=== PATIENT | female | born 1980 | race Two or more races ===

== ENCOUNTER 2021-12-11 12:37 | Emergency (ER) | payer MEDICAID ==
[2021-12-11] MEDS ORDERED: Ketorolac 60 MG/2 ML SDV IM ONE (15:07)
== END 2021-12-11 15:51 | disposition home or self-care (01) ==
LOC: MW.ED 12:37
DX: M19.071 Primary osteoarthritis, right ankle and foot (principal); E03.9 Hypothyroidism, unspecified; Z79.899 Other long term (current) drug therapy
CPT/HCPCS: 96372; 99283; J1885; 99282

== ENCOUNTER 2022-01-03 07:40 | Day surgery (SDC) | payer MEDICAID, OTHER ==
[2022-01-01 17:00] LABS: CARBON DIOXIDE,CO2 26.5 mmol/L (21.0-32.0); POTASSIUM,K 4.1 mmol/L (3.5-5.1)
[~2022-01-03 07:40] MED LIST: Sodium Chloride 0.9% 10 ML Syringe FLUSH PRN; Sodium Chloride 0.9% 2.5 ML Syringe FLUSH PRN; Sodium Chloride 0.9% 20 ML SDV IV PRN; ceFAZolin 2 GM in Premix Bag 1 BAG IV ONE
[2022-01-03] MEDS: Lactated Ringers 1,000 ML IV SCH ×2 (07:53→11:34)
[2022-01-03] MEDS ORDERED: Rocuronium Bromide 50 MG/5 ML Syringe ONE (08:12)
[2022-01-03] MEDS ORDERED: Ketamine 500 mg/10 ML MDV ONE (08:13)
[2022-01-03] MEDS ORDERED: Propofol 200 MG/20 ML SDV ONE (08:13)
[2022-01-03] MEDS ORDERED: fentaNYL 250 MCG/5 ML SDV ONE ×2 (08:13→10:35)
[2022-01-03] MEDS ORDERED: Fluorescein 5 ML Vial ONE (08:21)
[2022-01-03] MEDS ORDERED: Albuterol 0.083% 2.5 MG/3 ML Neb Soln NEB PRN (08:43)
[2022-01-03] MEDS ORDERED: Naloxone 0.4 MG/ML SDV IVPUSH PRN (08:43)
[2022-01-03] MEDS ORDERED: Ondansetron 4 MG/2 ML SDV IVPUSH PRN ×2 (08:43→10:13)
[2022-01-03] MEDS ORDERED: fentaNYL 50 MCG/ML SDV IVPUSH PRN (08:43)
[2022-01-03] MEDS ORDERED: HYDROmorphone 1 MG/ML Syringe IVPUSH PRN (08:43)
[2022-01-03] MEDS ORDERED: Metoclopramide 10 MG/2 ML SDV IVPUSH PRN (08:43)
[2022-01-03] MEDS ORDERED: Acetaminophen/oxyCODONE 325-5 MG Tab PO PRN (10:13)
[2022-01-03] MEDS ORDERED: Ketorolac 30 MG/ML SDV IVPUSH ONE (10:13)
[2022-01-03] MEDS ORDERED: Promethazine 25 MG/ML SDV IM PRN (10:13)
[2022-01-03] MEDS ORDERED: Morphine 4 MG/ML VIAL IVPUSH PRN (10:13)
[2022-01-03] MEDS ORDERED: fentaNYL 100 MCG/2 ML SDV ONE (10:35)
[2022-01-03] MEDS ORDERED: Dexamethasone 4 MG/ML 5 ML MDV ONE (10:35)
[2022-01-03] MEDS ORDERED: Ondansetron 4 MG/2 ML SDV ONE (10:35)
[2022-01-03] MEDS ORDERED: Sugammadex Sodium 200 MG/2 ML VIAL ONE (10:35)
[2022-01-03] MEDS ORDERED: Ketorolac 30 MG/ML SDV IVPUSH PRN (16:00)
[2022-01-04] MEDS: Acetaminophen/oxyCODONE 325-5 MG Tab PO PRN ×2 (04:16→08:41)
[2022-01-04 05:46] LABS: CARBON DIOXIDE,CO2 25.3 mmol/L (21.0-32.0); POTASSIUM,K 4.4 mmol/L (3.5-5.1)
== END 2022-01-04 09:15 | disposition home or self-care (01) ==
LOC: MW.SDS 07:40 → MW.OB 08:55 → MW.SDS 01-04 09:15
PROVIDERS: ATTEND Obstetrics & Gynecology
DX: N92.1 Excessive and frequent menstruation with irregular cycle (principal); N87.9 Dysplasia of cervix uteri, unspecified; N72 Inflammatory disease of cervix uteri; N80.0 Endometriosis of uterus; N83.11 Corpus luteum cyst of right ovary; F17.210 Nicotine dependence, cigarettes, uncomplicated; E03.9 Hypothyroidism, unspecified; E66.9 Obesity, unspecified; Z79.899 Other long term (current) drug therapy; Z79.890 Hormone replacement therapy
CPT/HCPCS: 36415; 58262; 80048; 84703; 85025; 85027; 86850; 86900; 86901; A9270; J1100; J1170; J1885; J2270; J2405; J2704; J3010; J3490; J7120; 00944; J7030

== ENCOUNTER 2022-10-28 22:51 | Emergency (ER) | payer MEDICAID, OTHER ==
[2022-10-28 23:27] LABS: APPEARANCE,URINE CLOUDY; BILIRUBIN,URINE NEGATIVE (NEGATIVE); COLOR,URINE YELLOW; GLUCOSE,URINE NEGATIVE (NEGATIVE); KETONES,URINE NEGATIVE (NEGATIVE); LEUKOCYTE ESTERASE,URINE MODERATE (NEGATIVE); NITRITE,URINE POSITIVE (NEGATIVE); OCCULT BLOOD,URINE MODERATE (NEGATIVE); PROTEIN,URINE NEGATIVE (NEGATIVE); UROBILINOGEN,URINE 0.2 EU/dL (<2.0)
[2022-10-28 23:32] LABS: EPITHELIAL CELLS,URINE MODERATE (NONE-FEW); RBC,URINE 15-20 (0-2/HPF); WBC,URINE TO NUMEROUS TO COUNT (0-5/HPF)
[2022-10-28 23:33] LABS: BACTERIA,URINE 2+ (NEGATIVE); MUCUS,URINE LIGHT (NONE-MOD)
[2022-10-28] MEDS ORDERED: Sodium Chloride 0.9% 10 ML Syringe FLUSH PRN (23:41)
[2022-10-28] MEDS ORDERED: Sodium Chloride 0.9% 2.5 ML Syringe FLUSH PRN (23:41)
[2022-10-28] MEDS ORDERED: cefTRIAXone 2 GM in Sodium Chloride 0.9% 50 ML IV ONE (23:53)
[2022-10-29 00:02] LABS: BASOPHILS PERCENT AUTO 0.4 % (0.0-1.5); EOSINOPHILS ABSOLUTE AUTO 0.3 K/uL (0.0-0.7); EOSINOPHILS PERCENT AUTO 2.9 % (0.0-7.0); HEMATOCRIT 37.3 % (36.0-46.0); HEMOGLOBIN 11.5 g/dL (12.0-16.0); LYMPHOCYTES ABSOLUTE AUTO 3.1 K/uL (0.6-2.4); LYMPHOCYTES PERCENT AUTO 27.4 % (16.0-40.0); MEAN CORPUSCULAR HEMOGLOBIN 23.7 pg (27.0-32.0); MEAN CORPUSCULAR HGB CONC 30.8 g/dL (31.0-37.0); MEAN CORPUSCULAR VOLUME 76.7 fL (80.0-98.0); MONOCYTES ABSOLUTE AUTO 0.9 K/uL (0.0-0.8); MONOCYTES PERCENT AUTO 8.1 % (0.0-15.0); NEUTROPHILS PERCENT AUTO 61.2 % (48.0-80.0); NRBC ABSOLUTE 0 K/uL; PLATELET COUNT,PLT 436 K/uL (150-400); RED BLOOD CELL COUNT 4.86 M/uL (4.30-5.90); WHITE BLOOD CELL COUNT,WBC 11.37 K/uL (4.0-11.0)
[2022-10-29 00:20] LABS: CALCIUM 8.7 mg/dL (8.5-10.1); CARBON DIOXIDE,CO2 25.5 mmol/L (21.0-32.0); EST CRCL DRUG DOSING (CG) 73.93 mL/min; POTASSIUM,K 3.9 mmol/L (3.5-5.1)
== END 2022-10-29 01:48 | disposition home or self-care (01) ==
LOC: MW.ED 22:51
DX: N39.0 Urinary tract infection, site not specified (principal); E03.9 Hypothyroidism, unspecified; E66.9 Obesity, unspecified; F17.210 Nicotine dependence, cigarettes, uncomplicated; Z91.040 Latex allergy status; Z91.09 Other allergy status, other than to drugs and biological substances; Z79.899 Other long term (current) drug therapy; Z68.41 Body mass index [BMI] 40.0-44.9, adult
CPT/HCPCS: 36415; 74176; 80048; 81001; 84703; 85025; 87086; 96365; 99284; J0696; J3490; 99283